=== PATIENT | female | born 1970 | race Caucasian/White ===

== ENCOUNTER → 2019-05-07 16:24 | Outpatient (CLI) | payer OTHER, SELFPAY ==
[2019-05-07 17:54] LABS: T4 Total, Thyroxin 7.2 ug/dL (4.8-13.9); Thyroid Stim Hormone (TSH) 2.03 uIU/mL (0.358-3.74)
== END ==
PROVIDERS: PCP Internal Medicine; Referring Provider Obstetrics & Gynecology; Visit Provider Obstetrics & Gynecology
DX: N92.6 Irregular menstruation, unspecified (principal)
CPT/HCPCS: 36415; 84436; 84443

== ENCOUNTER → 2019-06-18 11:27 | Outpatient (CLI) | payer OTHER, SELFPAY ==
--- NOTE | 2019-06-18 12:05 | BRBX_PTH ---
PATIENT: CORNELL ROLDAN LOC: [facility] U#:[id number] AGE/SX: 55/F ROOM: RE06/18/[address]: Dr. Kristina Mario MD : 1970 BED: DIS: SPEC #: [id number] RECD: 06/18/19 12:37 STATUS: MYLES FERNÁNDEZ #: [id number] JACKLYN: 06/18/19 12:[address]: Kristina Mario DEPT: SURGICAL PATHOLOGY RECD BY: Eduardo Fall ENTERED: 06/18/19 13:39 SP TYPE: BREAST BX OTHR DR: Dr. Krystal Winston MD Tissues: Right breast, NOS Procedures: Surgery Specimen Level IV HEADER OPERATION: Right breast stereotactic biopsy PRE-OP DIAGNOSIS: Right breast calcifications superior lateral quadrant TISSUE SUBMITTED: Right breast core tissue ISCHEMIC TIME: 2 minutes FIXATION TIME: 7.5 hours MICROSCOPIC DIAGNOSIS Right breast, stereotactic needle core biopsy: Fibrocystic change with associated microcalcifications. Focal intraductal hyperplasia without atypia. Focal lactational change. No evidence of malignancy. AM:francisco 06/19/19 MICROSCOPIC DESCRIPTION Slides are reviewed. GROSS DESCRIPTION Received is one container labeled with the patient's name and not further designated. The specimen consists of multiple elongated fragments of scott-yellow fibroadipose tissue that in aggregate measure 5 x 3 x 0.3 cm. The entire specimen is submitted in two cassettes. / SJ:francisco 06/18/19 TC:5 CPT: 90236
--- NOTE | 2019-06-18 15:25 | PCM.OPRPT ---
Report of Operation Date of Procedure: 06/18/19 Pre-Operative Diagnosis: abnormal calcifications on right breast mammograms Post-Operative Diagnosis: same as above Surgery/Procedure Performed:: right stereotactic breast biopsy Description of Surgical Findings:: calcifications of lateral aspect of right breast Type of Anesthesia:: Local - 1% xylocaine Specimen's removed: right breast tissue Estimated Blood Loss (mL): minimal Description of Procedure: After informed consent was given, the patient was brought into the breast biopsy suite. Appropriate time out protocol was followed. She was then placed in the prone position on the stereotactic biopsy table. The patient?s right breast was then placed in the opening at the head of the table. A supervisor sewer system compression mammogram was then obtained in the lateral view. The suspicious radiological lesion was then identified. Stereo pictures of the lesion were then taken for XYZ coordinates. The Mammotome biopsy stylus was then positioned where it would be entering into the patient?s breast. The skin at this site was then cleansed with a surgical skin preparation. The skin and subcutaneous tissues at this site were then infiltrated with 1% xylocaine. A small skin incision was made with an 11 blade scalpel. The biopsy stylus was then positioned into the patient?s breast at the proper coordinates of depth. Using the Mammotome vacuum-assist device, several core samples of breast tissue were obtained. A specimen mammogram was the obtained and revealed that the abnormal calcifications were within the specimen. A hemostatic marker clip was then placed into the biopsy cavity and a supervisor sewer system film revealed that it was properly deployed. The patient was then placed in the supine position and pressure was applied to the breast until no active bleeding was noted. Steristrips were applied to reapproximate the skin. A unilateral mammogram in the CC and MLO view were then taken which revealed that the marker clip was in the same area as the previous suspicious lesion. The patient tolerated the procedure well and was discharged from the breast biopsy suite in good condition. - Complications none noted
== END ==
PROVIDERS: PCP Internal Medicine; Referring Provider Surgery; Visit Provider Surgery
DX: R92.1 Mammographic calcification found on diagnostic imaging of breast (principal); N62 Hypertrophy of breast
CPT/HCPCS: 19081; 88305; J7050

== ENCOUNTER 2020-07-03 05:33 | Day surgery (SDC) | payer OTHER, SELFPAY ==
--- NOTE | 2020-07-01 09:26 | HP.PCM_ITS ---
History and Physical Date of Admission: 07/03/20 Latia Fostermallory Morel Physician Specialty: INSPECTOR [employer]ODUCTION [employer] H&P ? Signed Encounter Date: 06/18/2020 Expand AllCollapse All Expand All by Default Hide copied text Jyoti for details Pre-Op History and Physical ? HPI: The patient is a 50 year old female presenting for discussion regarding surgical management for heavy and irregular bleeding. Patient is status post endometrial ablation did well immediately after but February 2020 started bleeding heavily. Patient would like to proceed with surgical intervention at this time. ? Pre-operative visit. She is scheduled for TLH, Bilateral salpingectomy, Cysto, for AUB and pelvic pain s/p Endometrial Ablation, declines hormonal therapy on 07/03/20. Procedure discussed along with risks, benefits and complications. Other alternatives discussed for management. Consent form signed? Yes. ? ? PAST MEDICAL HISTORY PAST MEDICAL HISTORY Diagnosis Date ? Abdominal pain, right upper quadrant ? ? Resolved ? Abdominal pain, unspecified site ? ? Resolved ? Acute gastritis without mention of hemorrhage ? ? Resolved ? Esophageal reflux ? ? Resolved ? Irritable bowel syndrome ? ? Diet Controlled ? Menorrhagia 05/06/2011 ? Palpitations ? ? ? PAST SURGICAL HISTORY PAST SURGICAL HISTORY Procedure Laterality Date ? DELIVERY ONLY ? ? ? , low cervical, X-2 ? EGD W/O OR W/BRUSH/WASH ? 05/19/05 ? EGD ? LAPAROSCOPIC CHOLEYCYSTECTOMY ? 2004 ? Cholecystectomy, lap ? STEREOTACT BREAST BX EA LESION PC Right 06/18/2019 ? ? ? CURRENT MEDICATIONS Current Outpatient Medications Medication Sig Dispense Refill ? MULTI-VITAMIN ORAL Take by mouth. ? ? ? Magnesium Oxide 500 mg tab Take by mouth. ? ? ? simethicone, chewable (MYLICON) 80 mg chewable tablet Take 1 tablet by mouth every 6 hours as needed. 30 tablet 0 ? ibuprofen (MOTRIN) 600 mg tablet Take 1 tablet by mouth every 6 hours as needed. 60 tablet 1 ? oxyCODONE IR (ROXICODONE) 5 mg immediate release tablet Take 1 tablet by mouth every 8 hours as needed for Pain for up to 5 days. 10 tablet 0 ? acetaminophen (TYLENOL EXTRA STRENGTH) 500 mg tablet Take 2 tablets by mouth every 8 hours as needed for Pain. FOR PAIN. 60 tablet 0 ? docusate sodium (COLACE) 100 mg capsule Take 1 capsule by mouth twice daily. 60 capsule 2 ? Mv,Ca,Rkz-ZD-Cakfcu No.157 400 mcg tab Take by mouth. ? ? ? DOCOSAHEXANOIC ACID/EPA (FISH OIL ORAL) Take by mouth once daily. ? ? ? LACTOBACILLUS ACIDOPHILUS (PROBIOTIC ORAL) Take by mouth. ? ? ? COMPOUNDED PRESCRIPTION cleanse ? ? ? No current facility-administered medications for this visit. ? ? ALLERGIES: Patient has no known allergies. ? PERSONAL HISTORY: SOCIAL HISTORY Social History ? Tobacco Use ? Smoking status: Never Smoker ? Smokeless tobacco: Never Used Vaping Use ? Vaping Use: Never used Substance Use Topics ? Alcohol use: No ? Drug use: No ? FAMILY HISTORY: FAMILY HISTORY FAMILY HISTORY Problem Relation Age of Onset ? Hypertension Mother ? ? Hypertension Father ? ? Stroke Father 60 ? Diabetes Father ? ? Heart Paternal Grandmother ? ? CHF,Mild [place] ? Stroke Paternal Grandmother ? ? Heart Paternal Grandfather ? ? [place] ? Arthritis Paternal Grandfather ? ? Rheumatoid ? Hypertension Paternal Grandfather ? ? Asthma Maternal Grandfather ? ? Emphysema Maternal Grandfather ? ? Stroke Maternal Grandfather ? ? other (Blocked Bowels) Maternal Grandmother ? ? other (HYPOPITUITARISM) Son ? ? other (NEURAL TUBE DEFECT) Other ? ? NEPHEW / CERVICAL SPINE ? Diabetes Maternal Uncle ? ? Heart Maternal Uncle ? ? [place] ? other (Hysterectomy) Maternal Aunt ? ? 4 Maternal Aunts with Hysterectomy ? Cancer Maternal Aunt ? ? Heart Maternal Aunt ? ? Enlarged Heart ? Hypertension Maternal Uncle ? ? Kidney Failure ? Hypertension Maternal Aunt ? ? Hypertension Maternal Aunt ? ? May ? Heart Maternal Uncle ? ? Pace Maker/Enlarged Heart ? Hypertension Maternal Uncle ? ? Hypertension Maternal Aunt ? ? 2 Aneurysm's ? Hypertension Paternal Aunt ? ? Arthritis Paternal Aunt ? ? Hypertension Paternal Uncle ? ? Hypertension Paternal Aunt ? ? Arthritis Paternal Aunt ? ? Hypertension Paternal Uncle ? ? Hypertension Paternal Aunt ? ? Lipids Paternal Uncle ? ? High Cholesterol ? ? REVIEW OF SYMPTOMS: negative except as noted above PHYSICAL EXAMINATION: ? VITALS: Blood pressure 118/68, height 5' 2 (1.575 m), weight 175 lb (79.4 kg), last menstrual period 06/06/2019. ? GENERAL: The patient is well nourished, well hydrated in no acute distress. , The patient is oriented to time, place, and person. NECK: Full range of motion WET PREP: Not indicated ? Report Summary: Overall impression: The uterus is normal in appearance. The endometrium measures 8.0 mm in thickness, and there are no endometrial lesions identified. The right and left ovaries are normal appearing. There is no free fluid in the pelvic CDS. Recommendations / therapy: Clinical correlation recommended. Indication: Pelvic pain. History: Last menstrual period: 05/10/2019. 8th day of cycle. Gynecological Ultrasonography: Uterus: normal, anteverted, axial. Size: Longitudinal 126 mm. Anterio- posterior 48 mm. Transverse 66 mm. Volume: 209.0 ml. Endometrium: endometrium clearly visualized. Endometrium thickness total: 8.0 mm. Right Ovary: normal. Visible. Morphology: normal morphology. Right Ovary size: 27 mm x 24 mm x 12?mm. Volume: 4.1 ml. Left Ovary: normal. Visible. Morphology: normal morphology. Left Ovary size: 44 mm x 31 mm x 36 mm. Volume: 25.7 ml. Cul de Sac / Pouch of Alfredo: no free fluid visible. Method: transvaginal ultrasound, color Doppler, 2 D, 3 D. Performed by:Melly Justice RDMS Read by:Marii Mosquera M.D. ? IMPRESSION: AUB, Pelvic pain s/p Endometrial ablation ? PLAN: TLH, Bilateral salpingectomy, Cystoscopy ? Pt has been counseled on risks/benefits and alternatives of surgery including but not limited to anesthesia, bleeding, infection, injury to pelvic structures including bowel, bladder, ureters and vessels. Pt wishes to proceed with surgery at this time. ? Post op meds given ERAS protocol reviewed ? I have reviewed and updated past medical and surgical history, medications and allergies Latia Morel MD
[2020-07-02 09:32] LABS: Hematocrit 45.4 % (37-47); Hemoglobin 15.1 g/dL (12.0-15.0); Mean Corp Hgb Conc 33.3 g/dL (32-36); Mean Corpuscular Hgb 32.2 pg (27.0-32.0); Mean Corpuscular Volume 96.8 fL (81-99); Mean Platelet Vol. 10.3 fl (6.2-12.0); Platelet Count 240 K/mm3 (150-450); RBC Distribution Width CV 12.9 % (11.6-14.6); RBC Distribution Width SD 45.8 fl (35.1-43.9); Red Blood Count 4.69 M/mm3 (4.2-5.4); White Blood Count 5.6 K/mm3 (4.4-11.0)
[2020-07-02 10:00] LABS: Anion Gap 3 (5-15); BUN 16 mg/dL (7-18); BUN/Creat Ratio 22.4 RATIO (10-20); Calcium,Total 9.2 mg/dL (8.5-10.1); Chloride 105 mmol/L (98-107); Creatinine, Serum 0.71 mg/dL (0.55-1.02); EST Glomerular Filtration Rate 92 mL/min (>60); Est Glom Filt Rate - Afr Amer 112 mL/min (>60); Glucose 91 mg/dL (74-106); Potassium 3.9 mmol/L (3.5-5.1); Sodium Level 135 mmol/L (136-145)
[2020-07-02 10:01] LABS: Magnesium 2.3 mg/dL (1.6-2.6)
[2020-07-03] VITALS (14 sets, daily range): BP systolic 85–108; BP diastolic 44–67; PULSE 54–94; RESP 14–16; TEMP 36.3–36.7; O2SAT 96–100; BMI 31.9
--- NOTE | 2020-07-03 | HYST_PTH ---
PATIENT: CORNELL ROLDAN LOC: [facility] [place] U#:[id number] AGE/SX: 50/F ROOM: RE07/03/[address]: Dr. Latia Abel, MDDOB: 1970 BED: DIS: 07/03/2020 SPEC #: [id number] RECD: 07/03/20 13:10 STATUS: MYLES PRADEEP #: [id number] JACKLYN: 07/03/20 00:[address]: Latia Abel DEPT: SURGICAL PATHOLOGY RECD BY: Eduardo Fall ENTERED: 07/03/20 13:11 SP TYPE: HYSTERECT OTHR DR: Dr. Krystal Winston MD Tissues: Uterus, NOS Procedures: Surgery Specimen Level V HEADER OPERATION: ERAS, hysterectomy, TLH, salpingectomy, cysto, left oophorectomy PRE-OP DIAGNOSIS: Abnormal uterine bleeding, pelvic pain, status post endometrial ablation TISSUE SUBMITTED: Uterus, cervix, bilateral fallopian tubes, left ovary MICROSCOPIC DIAGNOSIS Uterus, cervix, bilateral fallopian tubes and right ovary, hysterectomy, bilateral salpingectomy and right oophorectomy: Cervix - chronic cystic cervicitis with tunnel cluster formation. Endometrium - secretory endometrium. - Focal changes consistent with endometrial ablation. Myometrium - intramural leiomyoma (1.5 cm in greatest dimension). Serosal surface - focal changes consistent with serosal adhesion. Left fallopian tube and ovary - tubo-ovarian adhesions with focal changes consistent with focal endometriosis. - Serous cystadenofibroma (1.5 cm in greatest dimension). Right fallopian tube - no pathologic diagnosis. SJ:francisco 07/04/2020 SJ:francisco 07/15/2020 MICROSCOPIC DESCRIPTION Slides are reviewed. GROSS DESCRIPTION Received in fixative is one container labeled with the patient's name and designated uterus, cervix, bilateral fallopian tubes and right ovary. The specimen consists of a hysterectomy specimen consisting of uterus with attached left fallopian tube and ovary and detached right fallopian tube. The uterus with cervix weighs 151 gm and measures 12 x 7.5 x 5 cm. The serosal surface is markedly ragged posteriorly. Pieces of adipose tissue are noted at the fundus and posterior surface. The anterior serosal surface is slightly ragged. The ectocervical mucosa is unremarkable. The external os is slit-like in contour. The endocervical canal measures 3.5 cm in length and the endocervical mucosa is scott, glistening and unremarkable. The endometrial cavity is narrow and partly obliterated in the proximal portion and measures 4 cm in length and up to 1.5 cm in width. The endometrium is scott, glistening without any mass lesion and measures <0.1 cm in thickness. The uterine wall reveals one nodular mass measuring 1.5 cm in greatest dimension. The uninvolved uterine wall measures up t0 2.5 cm in thickness. The detached right fallopian tube in two pieces measures 5.5 cm in length and 0.7 cm in diameter. The fimbrial end is identified. Sections reveal unremarkable cut surfaces. A possible paratubal cyst is identified measuring 0.5 cm in greatest dimension. The left fallopian tube and ovary are making a tubo-ovarian mass, possible portion of the fallopian tube, measures 2 cm in length. The fimbrial end is not clearly identified. The ovary with surrounding tissue measures in aggregate 4 x 3 x 2 cm. Sections of the ovary reveal multiple cysts. One of the cysts appear to be collapsed and measures 1.5 cm in diameter. An additional cyst is noted which measures 1.5 cm in greatest dimension and filled with clear fluid. Paper Coating Supervisor sections are submitted in 12 cassettes as follows: 1 - anterior cervix, 2 - posterior cervix, 3 & 4 - anterior uterine wall, 5 & 6 - posterior uterine wall, 7 - nodular mass, ragged serosal surface and attached adipose tissue on the serosal surface, 8 - right fallopian tube, 9 - left fallopian tube, 10-12 - left ovary. / SJ:francisco 07/03/20 TC:1 CPT: 52910
--- NOTE | 2020-07-03 | HYST_PTH ---
PATIENT: CORNELL ROLDAN LOC: [facility] [place] U#:[id number] AGE/SX: 50/F ROOM: RE07/03/[address]: Dr. Latia Abel, MDDOB: 1970 BED: DIS: 07/03/2020 SPEC #: [id number] RECD: 07/03/20 13:10 STATUS: MYLES PRADEEP #: [id number] JACKLYN: 07/03/20 00:[address]: Latia Abel DEPT: SURGICAL PATHOLOGY RECD BY: Eduardo Fall ENTERED: 07/03/20 13:11 SP TYPE: HYSTERECT OTHR DR: Dr. Krystal Winston MD Tissues: Uterus, NOS Procedures: Surgery Specimen Level V HEADER OPERATION: ERAS, hysterectomy, TLH, salpingectomy, cysto, right oophorectomy PRE-OP DIAGNOSIS: Abnormal uterine bleeding, pelvic pain, status post endometrial ablation TISSUE SUBMITTED: Uterus, cervix, bilateral fallopian tubes, right ovary MICROSCOPIC DIAGNOSIS Uterus, cervix, bilateral fallopian tubes and right ovary, hysterectomy, bilateral salpingectomy and right oophorectomy: Cervix - chronic cystic cervicitis with tunnel cluster formation. Endometrium - secretory endometrium. - Focal changes consistent with endometrial ablation. Myometrium - intramural leiomyoma (1.5 cm in greatest dimension). Serosal surface - focal changes consistent with serosal adhesion. Right fallopian tube and ovary - tubo-ovarian adhesions with focal changes consistent with focal endometriosis. - Serous cystadenofibroma (1.5 cm in greatest dimension). Left fallopian tube - no pathologic diagnosis. SJ:francisco 07/04/2020 MICROSCOPIC DESCRIPTION Slides are reviewed. GROSS DESCRIPTION Received in fixative is one container labeled with the patient's name and designated uterus, cervix, bilateral fallopian tubes and right ovary. The specimen consists of a hysterectomy specimen consisting of uterus with attached right fallopian tube and ovary and detached left fallopian tube. The uterus with cervix weighs 151 gm and measures 12 x 7.5 x 5 cm. The serosal surface is markedly ragged posteriorly. Pieces of adipose tissue are noted at the fundus and posterior surface. The anterior serosal surface is slightly ragged. The ectocervical mucosa is unremarkable. The external os is slit-like in contour. The endocervical canal measures 3.5 cm in length and the endocervical mucosa is scott, glistening and unremarkable. The endometrial cavity is narrow and partly obliterated in the proximal portion and measures 4 cm in length and up to 1.5 cm in width. The endometrium is scott, glistening without any mass lesion and measures <0.1 cm in thickness. The uterine wall reveals one nodular mass measuring 1.5 cm in greatest dimension. The uninvolved uterine wall measures up t0 2.5 cm in thickness. The detached left fallopian tube in two pieces measures 5.5 cm in length and 0.7 cm in diameter. The fimbrial end is identified. Sections reveal unremarkable cut surfaces. A possible paratubal cyst is identified measuring 0.5 cm in greatest dimension. The right fallopian tube and ovary are making a tubo-ovarian mass, possible portion of the fallopian tube, measures 2 cm in length. The fimbrial end is not clearly identified. The ovary with surrounding tissue measures in aggregate 4 x 3 x 2 cm. Sections of the ovary reveal multiple cysts. One of the cysts appear to be collapsed and measures 1.5 cm in diameter. An additional cyst is noted which measures 1.5 cm in greatest dimension and filled with clear fluid. Academy Education Director sections are submitted in 12 cassettes as follows: 1 - anterior cervix, 2 - posterior cervix, 3 & 4 - anterior uterine wall, 5 & 6 - posterior uterine wall, 7 - nodular mass, ragged serosal surface and attached adipose tissue on the serosal surface, 8 - left fallopian tube, 9 - right fallopian tube, 10-12 - right ovary. / SJ:rg 07/03/20 TC:1 CPT: 93393
[2020-07-03 05:51] LABS: Internal QC Validated? YES +Cl - CLEAR BKGD; Pregnancy, Urine Negative Negative
[2020-07-03] MEDS: Enoxaparin 40 MG/0.4 ML Syringe SC (06:32)
[2020-07-03] MEDS: Celecoxib 200 MG Capsule 400 MG PO (06:33)
[2020-07-03] MEDS: Acetaminophen 500 MG Tablet 1000 MG PO ×2 (06:33→13:57)
[2020-07-03] MEDS: Phenazopyridine 95 MG Tablet 190 MG PO (06:34)
[2020-07-03] MEDS: Gabapentin 600 MG Tablet PO (06:34)
[2020-07-03] MEDS: Lactated Ringers 1,000 ML 40 ML IV (06:35)
[2020-07-03] MEDS: Scopolamine 1mg/72hr Patch 1 PATCH TD (06:35)
[2020-07-03 07:05] LABS: Bedside Glucose 86 mg/dL (70-110)
[2020-07-03] MEDS: Bupivacaine Mpf 0.5% 30 ML VIAL (07:30)
[2020-07-03] MEDS: Cefazolin 2 GM in 0.9% Normal Saline 100 ML IV (07:42)
--- NOTE | 2020-07-03 10:10 | PCM.OPRPT ---
Problem List (1) Lower abdominal adhesions Status: Acute Report of Operation Date of Procedure: 07/03/20 Pre-Operative Diagnosis: Intra-abdominal adhesions of the lower abdomen Post-Operative Diagnosis: Same Surgery/Procedure Performed:: Lysis of adhesions laparoscopically Description of Procedure: I was called into the operating room due to adhesions from the sigmoid colon to the uterus. These were taken down using a combination of dissection with [place] dissectors as well as LigaSure. The left ureter was identified and was intact. Once the colon was fully mobilized the operation continued as planned. Rojelio Rios MD Pager: [facility] [address] [place] [address] Office:
--- NOTE | 2020-07-03 10:17 | OP.PCM_ITS ---
Report of Operation Date of Procedure: 07/03/20 - start 0748 end time 1024 Pre-Operative Diagnosis: PELVIC PAIN, AUB S/P ENDOMETRIAL ABLATION Post-Operative Diagnosis: SAME, PELVIC ADHESIONS, ENDOMETRIOSIS, BILATERAL OVARIAN CYSTS Surgery/Procedure Performed:: TLH, BILATERAL SALPINGECTOMY, LEFT OOPHORECTOMY, EXTENSIVE LYSIS OF ADHESIONS, CYSTOSCOPY Description of Surgical Findings:: Pelvic adhesions to the left pelvic sidewall bowel stuck to the posterior aspect of the uterus and to the left adnexa. Uterus adherent to anterior abdominal wall. Intraoperative consult done by Dr. Rojelio Rios for lysis of adhesions. endometriosis appreciated in anterior and posterior cul-de-sacs bilateral uterosacral ligaments and both ovaries small functional cyst on right ovary. logistics research engineer: Roberta House - assisted with uterine manipulation, camera, disection of adhesions, colpotomy. No qualifed resident avaialble. Type of Anesthesia:: General Special Medications: 0.5% marcaine Specimen's removed: uterus, cervix, bilateral fallopian tubes, left ovary Drains: none Estimated Blood Loss (mL): 50 Fluids Replaced: 1600 Description of Procedure: Patient take to OR and prepped and draped in usual sterile fashion in dorsal lithotomy position with her arms tucked in a neurologically safe and neutral position. The uterus sounded to 8cm. The supervisory it specialist uterine manipulator was sutured into place at 12:00 position and diggs were placed. Attention was turned to the abdomen. All port sites were infiltrated with 0.5% marcaine before the incisions were made. The anterior abdominal wall was tented up with towel clamps and using a direct entry approach a 5 mm supraumbilical port was placed. Intraperitoneal placement was confirmed with the laparoscope and the pneumoperitoneum was created. The patient was placed in Trendelenburg a nd 5 mm right and left lower quadrant ports were placed under direct visualization. Air seal rapid insufflator was used. The uterus was adherent to the anterior abdominal wall significant pelvic adh esions to the left pelvic sidewall that and captured the bowel uterus and adnexa. The right tube appeared normal the right ovary contained a functional cyst. At this time omental adhesions to the anterior abdominal wall were taken down followed by the uterus was dissected off the anterior abdominal wall. At this time we could identify the round ligament on the right. the round ligaments were divided. The anterior peritoneum was dissected down to create the bladder flap with blunt dissection and the LigaSure. At this time the left adhesion to the pelvic sidewall was dissected and Dr. Rojelio Kern to general surgery was called in to help with extensive lysis of adhesions and dissection of the bowel off the pelvic sidewall and the ovary. The ovary was not able to be from the adhesions decision was made to perform a left oophorectomy. Multiple areas consistent with endometriosis was appreciated in the anterior, posterior cul-de-sacs as well as the pelvic sidewalls and the adnexa. On the left the infundibulopelvic ligament was isolated clamped sealed and cut. Continued dissection down to the anterior bladder flap was continued. The bladder dropped nicely off the lower uterine segment. The uterine arteries were isolated, clamped, sealed and cut. There was minimal back bleeding from the uterus. Straight bites on uterine arteries performed to drop them off the cuff. The maniupulator cup was used as guide to create colpotomy using monopolar tip of ligasure. once specimen was removed attention was turned to vaginal portion. The specimen was handed off. The cuff was closed with interrupted 0-vicryl figure of 8 sutures prior to closure the posterior cuff was run with 2-0 vicryl. Cystoscopy was performed bilateral ureters were visualized with good efflux. bladder was intact. diggs used to drain bladder- it was removed- and sponge stick placed in vagina. The pneumoperitoneum was recreated and the cuff had scant oozing and pedicles were hemostatic. Floseal placed on cuff and Christian was placed over posterior peritoneum and pelvic side powell where adhesions had denuded areas. The skin incisions were closed with skin glue and 3-0 monocryl in the port sites. The vaginal sweep was completed by me. Grafts/Implants Used: none - Complications none - Admit VTE Documentation VTE Present on Admission: Yes VTE Mechan Device Prophylaxis: SCD's VTE Pharm Prophylaxis ordered?: Yes
--- NOTE | 2020-07-03 10:26 | DCINST_ITS ---
Discharge Diet: No Restrictions Discharge Activity: Return to Normal Activity, May Not Drive - while taking narcotic pain medications., May Shower May resume sexual activity in: 6-8 weeks Lifting Restrictions: 20 Call your doctor if your incision/area has: Continuous Slow Oozing, Sudden Increased Bleeding, Increased Pain/ Swelling, Increased Redness, Foul Smelling Discharge Call your doctor if you observe: Fever of 101 or Higher, Inability to urinate, Inability to have a bowel movement, Using more than one pad per hour Cleanse incision/area with: Keep Dressing Clean & Dry, - - You have skin glue over your incisions. Do not pick the glue off. You may shower and then let the soap and water run over your incision sites and dab dry. Allergies/Adverse Reactions: Allergies No Known Allergies Allergy (Verified 06/26/20 15:19) Medications to take at Discharge Cholecalciferol (Vitamin D3) [Vitamin D3] 10,000 unit PO DAILY 06/26/20 Magnesium Oxide [Magnesium] 500 mg PO DAILY 06/26/20 Multivitamin [Multiple Vitamins] 1 each PO DAILY 06/26/20 Primary Care Physician: Krystal Winston MD [Primary Care Provider] - Test Results: Test results from this visit will be discussed in further detail at your follow- up appointment, if applicable. Please Follow Up With: Latia Abel MD When: 2 weeks as scheduled [phone]
[2020-07-03] MEDS: Lactated Ringers 1,000 ML 70 ML IV ×2 (10:50→11:59)
[2020-07-03] MEDS: Ondansetron 4 MG/2 ML Vial IV (10:57)
[2020-07-03 13:07] LABS: Hematocrit 41.6 % (37-47); Hemoglobin 13.7 g/dL (12.0-15.0); Mean Corp Hgb Conc 32.9 g/dL (32-36); Mean Corpuscular Hgb 31.7 pg (27.0-32.0); Mean Corpuscular Volume 96.3 fL (81-99); Mean Platelet Vol. 10.3 fl (6.2-12.0); Platelet Count 246 K/mm3 (150-450); RBC Distribution Width CV 12.5 % (11.6-14.6); RBC Distribution Width SD 44.8 fl (35.1-43.9); Red Blood Count 4.32 M/mm3 (4.2-5.4)
[2020-07-03] MEDS: Ketorolac 30 MG/ML Syringe IV (13:57)
== END 2020-07-03 16:49 | disposition home or self-care (01) ==
LOC: SDC 05:34 → AC 05:34 → MS3 09:12
PROVIDERS: Anesthesiology; PCP Internal Medicine; Referring Provider Obstetrics & Gynecology; Visit Provider Obstetrics & Gynecology
PROC: 0UT94ZZ Resection of Uterus, Percutaneous Endoscopic Approach (ICD-10-PCS; CPT 58571; principal; 2020-07-03 07:10)
DX: D25.1 Intramural leiomyoma of uterus (principal); N80.2 Endometriosis of fallopian tube; N80.1 Endometriosis of ovary; N80.3 Endometriosis of pelvic peritoneum; N83.201 Unspecified ovarian cyst, right side; N72 Inflammatory disease of cervix uteri; N73.6 Female pelvic peritoneal adhesions (postinfective); Z20.822 Contact with and (suspected) exposure to COVID-19
CPT/HCPCS: 49329; 58571; 36415; 80048; 81025; 82962; 83735; 85027; 86850; 86900; 86901; 87426; 88307; C9803; J7120; J1940; J2405

== ENCOUNTER → 2024-10-11 | Outpatient (CLI) | payer OTHER, SELFPAY ==
--- NOTE | 2024-10-11 14:48 | MRI_ITS ---
PROCEDURE: SPINE LUMBAR W/WO CONTRAST 10/11/2024 REASON FOR EXAM: LUMBAR RADICULOPATHY TECHNIQUE: SPINE LUMBAR W/WO CONTRAST Multiplanar and multisequence images were obtained without and with intravenous gadolinium-based contrast administration. CONTRAST: Clariscan VOLUME: 18 mL COMPARISON: Lumbar spine MRI 06/04/2022. FINDINGS: 5 [id number] lumbar-type vertebrae are preserved in height. Alignment is anatomic, although there is straightening of the normal lumbar lordosis. No abnormal marrow signal. Mild multilevel spondylotic changes with varying degrees of mild disc desiccation and narrowing, multiple small degenerative endplate Schmorl's nodes, small anterior osteophytes, and hypertrophic facet arthropathy. Conus appears normal in signal and morphology, terminating at L1. Normal appearance of the cauda equina. Unremarkable paravertebral soft tissues. No pathologic enhancement. L1-2: No disc bulge, spinal canal or foraminal narrowing. L2-3: No disc bulge, spinal canal or foraminal narrowing. L3-4: Mild broad-based dorsal annular disc bulge slightly indenting the ventral thecal sac, without any substantial spinal canal narrowing. Mild bilateral foraminal narrowing. L4-5: Mild broad-based dorsal annular disc bulge indenting the ventral thecal sac, combined with ligamentum flavum/facet hypertrophy results in mild spinal canal narrowing, particularly narrowing the lateral recesses. Mild bilateral foraminal narrowing, more pronounced on the left. L5-S1: No disc bulge, spinal canal or foraminal narrowing. MRI/Spine Lumbar W/WO Contrast IMPRESSION: Mild spondylotic changes most pronounced at L3-4 and L4-5 as described, with mi ld bilateral neural foraminal narrowing at these levels, most pronounced on the left at L4-5. No substantial spinal canal narrowing or cauda equina impingement. No patholog ic enhancement. Reading Location: [id number]
== END | disposition home or self-care (01) ==
LOC: MRI 14:45
PROVIDERS: PCP Family Medicine; Referring Provider Orthopaedic Surgery Orthopaedic Surgery of the Spine; Visit Provider Orthopaedic Surgery Orthopaedic Surgery of the Spine
DX: M54.16 Radiculopathy, lumbar region (principal)
CPT/HCPCS: 72158; A9575